=== PATIENT | male | born 1965 | race Caucasian/White ===

== ENCOUNTER 2016-04-04 15:04 | Observation (INO) | payer BC ==
[~2016-04-04] VITALS: Ht 175.3 cm; Wt 114.1 kg
[~2016-04-04 15:04] MED LIST: ATENOLOL25 MG PO; ATORVASTATIN CA80 MG PO; AUGMENTIN875 MG PO; Colchicine,Colcrys PO; DAILY VITE1 EAC1 PO; HYDROCHLOROTHIA25 MG PO; HYDROCODON-ACE1 EAC7 PO; LEVAQUIN750 MG PO; LISINOPRIL20 MG PO; LOPRESSOR25 MG PO; LOPRESSOR50 MG PO; METOPROLOL TART50 MG PO; NITROSTAT0.4 MG SL; OXYCODONE HCL5 MG PO; RANITIDINE HCL150 MG PO; ST. JOSEPH ASPI81 MG PO; TYLENOL EXTRA500 MG PO
[2016-04-04 16:04] LABS: HEMATOCRIT 36.8 % (38.0-50.0); MCH 25.5 PG (29.0-34.0); MCHC 32.9 G/DL (30.0-36.0); MCV 77.5 FL (86-99); MEAN PLAT.VOLUME 8.9 uM^3 (9.0-12.4); PLATELET COUNT 311 K/uL (156-360); RBC DIS.WIDTH-CV 15.2 % (11.8-14.6); RBC DIS.WIDTH-SD 41.8 % (39-53); RED BLOOD COUNT 4.75 M/uL (4.00-5.50); WHITE BLOOD COUNT 5.1 K/uL (4.1-10.2)
[2016-04-04 16:05] LABS: BASOPHIL COUNT 0.1 K/uL (0-0.1); EOSINOPHIL (%) 2.7 % (0-5); EOSINOPHIL COUNT 0.1 K/uL (0-0.3); LYMPHOCYTE COUNT 2.1 K/uL (1.0-2.8); MONOCYTE (%) 16.3 % (3-12); MONOCYTE COUNT 0.8 K/uL (0-0.8); NEUTROPHIL (%) 39.1 % (45-76)
[2016-04-04 16:16] LABS: CHLORIDE 108 mEq/L (99-109); POTASSIUM 4.5 mEq/L (3.7-5.4); SODIUM 141 mEq/L (136-147)
[2016-04-04 16:18] LABS: GLUCOSE 101 mg/dL (70-99)
[2016-04-04 16:19] LABS: ANION GAP 7 MEQ/L (2-14)
[2016-04-04 16:20] LABS: TOTAL BILIRUBIN 0.3 mg/dL (0.0-1.0)
[2016-04-04 16:22] LABS: ALKALINE PHOSPHATASE 83 IU/L (3-129); GFR ESTIMATE (CALCULATED) > 59 mL/min/
[2016-04-04 16:23] LABS: UREA NITROGEN (BUN) 20 mg/dL (9-23)
[2016-04-04 16:29] LABS: TROP-I INTERPRETATION NEGATIVE; TROPONIN-I < 0.01 ng/mL (0.0-0.30)
[2016-04-04] MEDS ORDERED: LOSARTAN POTASS50 MG PO (16:56)
[2016-04-04 18:45] LABS: TROP-I INTERPRETATION NEGATIVE; TROPONIN-I < 0.01 ng/mL (0.0-0.30)
[2016-04-04 20:23] VITALS: BP 120/57
[2016-04-05 00:13] VITALS: BP 135/58
[2016-04-05 00:43] LABS: TROP-I INTERPRETATION NEGATIVE; TROPONIN-I < 0.01 ng/mL (0.0-0.30)
[2016-04-05 03:30] VITALS: BP 116/72
[2016-04-05 09:48] VITALS: BP 131/68
[2016-04-05 12:41] VITALS: BP 115/52
== END 2016-04-05 14:16 | disposition home or self-care (01) ==
LOC: EME 15:04 → EDOF 17:21 → 5WEST 19:39
PROVIDERS: Hospitalist; Physician Assistant
DX: R07.89 Other chest pain (principal); K21.9 Gastro-esophageal reflux disease without esophagitis; I25.10 Atherosclerotic heart disease of native coronary artery without angina pectoris; Z95.5 Presence of coronary angioplasty implant and graft; I10 Essential (primary) hypertension; E78.5 Hyperlipidemia, unspecified; F17.220 Nicotine dependence, chewing tobacco, uncomplicated; Z87.898 Personal history of other specified conditions; Z79.82 Long term (current) use of aspirin; Z82.49 Family history of ischemic heart disease and other diseases of the circulatory system; Z80.9 Family history of malignant neoplasm, unspecified
CPT/HCPCS: 71020; 80053; 83880; 84484; 85025; 93005; 99281; 99285; G0378; J1650

== ENCOUNTER 2017-08-19 00:18 | Observation (INO) | payer BC ==
[~2017-08-19] VITALS: Ht 175.3 cm; Wt 118.5 kg
[~2017-08-19 00:18] MED LIST changes: +LOPRESSOR100 M1 PO; +LOSARTAN POTASS50 MG PO
[2017-08-19 01:44] LABS: BASOPHIL COUNT 0.1 K/uL (0-0.1); EOSINOPHIL (%) 5.8 % (0-5); EOSINOPHIL COUNT 0.3 K/uL (0-0.3); HEMATOCRIT 33.6 % (38.0-50.0); HEMOGLOBIN 10.4 G/DL (12.5-16.6); IMMATURE GRANULOCYTE (%) 0.2 % (0.0-0.7); LYMPHOCYTE (%) 39.8 % (15-42); LYMPHOCYTE COUNT 1.9 K/uL (1.0-2.8); MCV 71.2 FL (86-99); MONOCYTE (%) 14.9 % (3-12); MONOCYTE COUNT 0.7 K/uL (0-0.8); NEUTROPHIL (%) 38.3 % (45-76); NEUTROPHIL COUNT 1.8 K/uL (1.8-6.4); PLATELET COUNT 352 K/uL (156-360); RBC DIS.WIDTH-CV 17.4 % (11.8-14.6); RBC DIS.WIDTH-SD 44.6 % (39-53); RED BLOOD COUNT 4.72 M/uL (4.00-5.50); WHITE BLOOD COUNT 4.8 K/uL (4.1-10.2)
[2017-08-19 01:46] LABS: PTT 30.6 SEC (25-37)
[2017-08-19 01:50] LABS: CHLORIDE 106 mEq/L (99-109); SODIUM 139 mEq/L (136-147)
[2017-08-19 01:52] LABS: GLUCOSE 97 mg/dL (70-99)
[2017-08-19 01:56] LABS: CREATININE 0.7 mg/dL (0.6-1.3); GFR ESTIMATE (CALCULATED) > 59 mL/min/ (58.99-99999)
[2017-08-19 01:57] LABS: UREA NITROGEN (BUN) 17 mg/dL (9-23)
[2017-08-19 01:58] LABS: TROP-I INTERPRETATION NEGATIVE; TROPONIN-I < 0.01 ng/mL (0.0-0.30)
[2017-08-19 05:23] VITALS: BP 137/86
[2017-08-19 07:23] VITALS: BP 149/70
[2017-08-19 08:15] LABS: TROP-I INTERPRETATION NEGATIVE; TROPONIN-I < 0.01 ng/mL (0.0-0.30)
[2017-08-19 11:44] VITALS: BP 171/87
[2017-08-19] MEDS ORDERED: OMEPRAZOLE10 M1 PO (11:59)
[2017-08-19] MEDS ORDERED: CHEWABLE-VITE1 EACH PO (12:00)
[2017-08-19 15:15] LABS: TROP-I INTERPRETATION NEGATIVE; TROPONIN-I < 0.01 ng/mL (0.0-0.30)
[2017-08-19 16:11] VITALS: BP 160/86
== END 2017-08-19 15:47 | disposition home or self-care (01) ==
LOC: EME 00:18 → EDOF 04:30 → ENRESERV 04:31 → 4SOUTH 05:05
PROVIDERS: Emergency Medicine; Physician Assistant
DX: R07.9 Chest pain, unspecified (principal); I25.10 Atherosclerotic heart disease of native coronary artery without angina pectoris; Z95.1 Presence of aortocoronary bypass graft; Z95.5 Presence of coronary angioplasty implant and graft; I10 Essential (primary) hypertension; E78.5 Hyperlipidemia, unspecified; R51 Headache; Z82.49 Family history of ischemic heart disease and other diseases of the circulatory system; Z79.82 Long term (current) use of aspirin
CPT/HCPCS: 71045; 80048; 84484; 85025; 85610; 85730; 93005; 99281; 99285; G0378; J1644; J3010; J7030